=== PATIENT | male | born 1970 | race Caucasian/White ===

== ENCOUNTER → 2016-08-01 | Outpatient (CLI) | payer BC ==
[~2016-08-01] MED LIST: ATIVAN 1 MG1 MG PO; BIPAP INH; CATAPRES0.2 MG PO; CYMBALTA30 MG PO; CYMBALTA60 MG PO; DESYREL50 MG PO; EXTRA STRENGTH500 MG PO; GLUCOPHAGE1000 MG PO; GLUCOPHAGE500 MG PO; GLUCOSE4 GM PO; HYZAAR 100-12.1 EACH PO; INVOKANA300 MG PO; MAGNESIUM500 MG PO; MELATONIN1 MG PO; NASONEX NASAL S17 GM NOSE; ONDANSETRON ODT4 MG PO; PROTONIX40 MG PO; ROPINIROLE HCL1 MG PO; TYLENOL/COD#31 TAB PO; VYVANSE30 MG PO; ZOFRAN4 MG PO; ZYLOPRIM300 MG PO
== END | disposition disaster alternative care site (69) ==
LOC: GRAD 11:11
DX: N20.0 Calculus of kidney (principal)